=== PATIENT | male | born 1985 | race Caucasian/White ===

== ENCOUNTER 2017-08-25 09:54 | Emergency (ER) | payer MEDICAID ==
[~2017-08-25] VITALS: Ht 172.7 cm; Wt 79.3 kg
[2017-08-25 10:45] VITALS: BP 123/73
== END 2017-08-25 11:26 | disposition home or self-care (01) ==
LOC: ER 09:54
DX: Z02.89 Encounter for other administrative examinations (principal)
CPT/HCPCS: 99281

== ENCOUNTER 2017-10-07 16:36 | Emergency (ER) | payer MEDICAID | END 2017-10-07 17:10 | disposition left against medical advice (07) | LOC: ER 16:36 | DX: Z00.8 Encounter for other general examination (principal); Z53.21 Procedure and treatment not carried out due to patient leaving prior to being seen by health care provider ==

== ENCOUNTER 2019-01-19 10:46 | Emergency (ER) | payer MEDICAID ==
[~2019-01-19] VITALS: Ht 172.7 cm; Wt 77.3 kg
[2019-01-19] MEDS ORDERED: DIPH-423 PO (11:16)
[2019-01-19] MEDS ORDERED: ONDA4TAB6 PO (11:16)
[2019-01-19] MEDS ORDERED: NICO-687 TOP (11:16)
[2019-01-19 11:25] VITALS: BP 131/69
== END 2019-01-19 11:26 | disposition home or self-care (01) ==
LOC: ER 10:47
DX: F15.90 Other stimulant use, unspecified, uncomplicated (principal); F11.90 Opioid use, unspecified, uncomplicated; Z88.0 Allergy status to penicillin; Z79.899 Other long term (current) drug therapy
CPT/HCPCS: 99283

== ENCOUNTER 2019-05-03 08:50 | Emergency (ER) | payer MEDICAID ==
[~2019-05-03] VITALS: Ht 172.7 cm; Wt 77.0 kg
[~2019-05-03 08:50] MED LIST: DIPH-423 PO; ONDA4TAB6 PO
[2019-05-03 08:54] VITALS: BP 114/72
--- NOTE | 2019-05-03 08:59 | NUR ---
pt is here for medical clearance for rehab
== END 2019-05-03 09:20 | disposition home or self-care (01) ==
LOC: ER 08:50
DX: F11.10 Opioid abuse, uncomplicated (principal); F15.10 Other stimulant abuse, uncomplicated; F17.210 Nicotine dependence, cigarettes, uncomplicated; Z88.0 Allergy status to penicillin; Z79.899 Other long term (current) drug therapy
CPT/HCPCS: 99281

== ENCOUNTER 2019-12-05 19:28 | Emergency (ER) | payer MEDICAID ==
[~2019-12-05] VITALS: Ht 175.3 cm; Wt 86.4 kg
[2019-12-05 19:34] VITALS: BP 105/80
== END 2019-12-05 20:40 | disposition home or self-care (01) ==
LOC: ER 19:28
DX: Z03.818 Encounter for observation for suspected exposure to other biological agents ruled out (principal); R05 Cough; R50.9 Fever, unspecified; R53.1 Weakness; Z88.0 Allergy status to penicillin; Z79.899 Other long term (current) drug therapy
CPT/HCPCS: 36415; 99283; U0003